=== PATIENT | female | born 1995 | race African-American/Black ===

== ENCOUNTER 2017-08-26 15:02 | Inpatient (IN) ==
[2017-08-26] MEDS ORDERED: ONDANSETRON 4 MG/2 ML VIAL IV PRN (15:39)
[2017-08-26] MEDS ORDERED: MEPERIDINE 50 MG/1 ML VIAL IV PRN (15:39)
[2017-08-26] MEDS ORDERED: BUTORPHANOL 2 MG/ML VIAL IV PRN (15:39)
[2017-08-26] MEDS ORDERED: DINOPROSTONE VAG GEL 10 MG SYRINGE VAG ONE ×2 (15:40→15:41)
[2017-08-26] MEDS ORDERED: LACTATED RINGERS 1,000 ML IV SCH (16:00)
[2017-08-26 16:28] LABS: Basophils % 0.3 % (0.0-0.8); Eosinophils # 0.1 10*3/uL (0.0-0.87); Eosinophils % 0.8 % (0.00-10.9); Hematocrit 30.7 VOL% (35.7-47.0); Immature Granulocytes % 0.8 %; Immature Granulocytes Absolute 0.06 #; Lymphocytes # 1.3 10*3/uL (1.4-4.0); Lymphocytes % 18.3 % (21.3-54.2); Mean Corpuscular HGB Conc 32.6 GM/DL (32-36); Mean Corpuscular Hemoglobin 27 PG (27-34); Mean Corpuscular Volume 81.2 FL (87-102); Mean Platelet Volume 9.3 FL (9.6-12.0); Monocytes # 0.7 10*3/uL (0.11-0.8); Monocytes % 9.4 % (1.7-12.7); Neutrophils # 5.1 10*3/uL (1.4-7.4); Neutrophils % 70.4 % (38.7-73.9); Platelet Count 272 T/CUMM (130-400); Red Blood Count 3.78 MC/CUMM (3.8-5.5); Red Cell Distribution Width 14.6 % (9.3-17.3); White Blood Count 7.3 T/CUMM (4-12)
[2017-08-26 16:46] LABS: Alanine Aminotransferase 19 U/L (13-56); Albumin 2.5 G/DL (3.4-5.0); Alkaline Phosphatase 148 U/L (45-117); Aspartate Amino Transferase 24 U/L (0-37); Bilirubin,Total < 0.39 MG/DL (0.2-1.0); Blood Urea Nitrogen 7 MG/DL (7-18); Calcium 8.5 MG/DL (8.5-10.1); Glucose 106 MG/DL (74-106); Potassium 3.8 MMOL/L (3.5-5.1); Sodium 136 MMOL/L (136-145); Total Protein 7.3 G/DL (6.4-8.3)
[2017-08-27] MEDS ORDERED: OXYTOCIN/LR 20 UNIT/1,000 ML BAG IV SCH (02:00)
[2017-08-27] MEDS ORDERED: DINOPROSTONE VAG GEL 10 MG SYRINGE VAG ONE (08:47)
[2017-08-27] MEDS ORDERED: CITRIC ACID/SODIUM CITRATE 30 ML UDCUP PO ONE (17:13)
[2017-08-27] MEDS ORDERED: LACTATED RINGERS 1,000 ML IV ONE ×2 (17:13→19:06)
[2017-08-27] MEDS ORDERED: OXYTOCIN/LR 30 UNIT/1,000 ML BAG IV ONE (17:17)
[2017-08-27] MEDS ORDERED: OXYTOCIN 10 UNIT/ML VIAL IM ONE (17:17)
[2017-08-27] MEDS ORDERED: ceFAZolin 2,000 MG in PREMIX 1 EACH IV ONE (17:18)
[2017-08-27] MEDS ORDERED: FAMOTIDINE 20 MG/2 ML VIAL IV ONE (17:30)
[2017-08-27 18:48] LABS: Cord Arterial Blood HCO3 25.4 MMOL/L
[2017-08-27] MEDS ORDERED: MORPHINE 10 MG/10 ML VIAL ONE (19:05)
[2017-08-27] MEDS ORDERED: fentaNYL 100 MCG/2 ML VIAL ONE (19:06)
[2017-08-27] MEDS ORDERED: ePHEDrine 50 MG/ML AMP ONE (19:06)
[2017-08-27] MEDS ORDERED: ACETAMINOPHEN 1,000 MG/100 ML VIAL IV ONE (19:06)
[2017-08-27] MEDS ORDERED: ONDANSETRON 4 MG/2 ML VIAL ONE (19:06)
[2017-08-27] MEDS ORDERED: IBUPROFEN 800 MG TABLET PO PRN (22:12)
[2017-08-27] MEDS ORDERED: ACETAMINOPHEN 325 MG TABLET PO PRN (22:12)
[2017-08-27] MEDS ORDERED: ONDANSETRON 4 MG/2 ML VIAL IV PRN (22:12)
[2017-08-27] MEDS ORDERED: SIMETHICONE CHEW 80 MG TABLET PO PRN (22:12)
[2017-08-27] MEDS ORDERED: OXYTOCIN/LR 20 UNIT/1,000 ML BAG IV ONE (22:12)
[2017-08-27] MEDS ORDERED: RHO(D) IMMUNE GLOBULIN 300 MCG SYRINGE IM ONE (22:12)
[2017-08-27] MEDS ORDERED: diphenhydrAMINE 50 MG/1 ML VIAL IM PRN (22:14)
[2017-08-27] MEDS: diphenhydrAMINE 50 MG/1 ML VIAL IV PRN (22:44)
[2017-08-28] MEDS: ceFAZolin 1,000 MG in SYRINGE 1 EACH IV SCH ×2 (02:56→11:13)
[2017-08-28] MEDS: DOCUSATE SODIUM 100 MG CAPSULE PO SCH ×3 (02:56→20:52)
[2017-08-28 03:14] LABS: Basophils % 0.1 % (0.0-0.8); Eosinophils % 0.2 % (0.00-10.9); Hematocrit 29.3 VOL% (35.7-47.0); Hemoglobin 9.6 GM/DL (12.0-16.0); Immature Granulocytes % 0.7 %; Immature Granulocytes Absolute 0.06 #; Lymphocytes # 1.4 10*3/uL (1.4-4.0); Lymphocytes % 16.1 % (21.3-54.2); Mean Corpuscular HGB Conc 32.8 GM/DL (32-36); Mean Corpuscular Hemoglobin 26 PG (27-34); Mean Corpuscular Volume 79.4 FL (87-102); Mean Platelet Volume 8.9 FL (9.6-12.0); Monocytes # 0.7 10*3/uL (0.11-0.8); Monocytes % 7.5 % (1.7-12.7); Neutrophils # 6.7 10*3/uL (1.4-7.4); Neutrophils % 75.4 % (38.7-73.9); Platelet Count 224 T/CUMM (130-400); Red Blood Count 3.69 MC/CUMM (3.8-5.5); Red Cell Distribution Width 14.5 % (9.3-17.3); White Blood Count 8.8 T/CUMM (4-12)
[2017-08-28] MEDS: diphenhydrAMINE 50 MG/1 ML VIAL IV PRN (04:13)
[2017-08-28] MEDS: LACTATED RINGERS 1,000 ML IV SCH ×2 (04:15→04:17)
[2017-08-28] MEDS: MULTIVITAMIN (PRENATAL) TABLET PO SCH (09:03)
[2017-08-28] MEDS: FERROUS SULFATE 325 MG TABLET PO SCH ×2 (09:03→20:52)
[2017-08-28] MEDS: MAGNESIUM HYDROXIDE SUSP 30 ML UDCUP PO PRN (09:03)
[2017-08-28 09:41] LABS: Eosinophils % 0.2 % (0.00-10.9); Hematocrit 30.1 VOL% (35.7-47.0); Hemoglobin 9.8 GM/DL (12.0-16.0); Immature Granulocytes % 0.5 %; Immature Granulocytes Absolute 0.05 #; Lymphocytes # 0.9 10*3/uL (1.4-4.0); Lymphocytes % 9.5 % (21.3-54.2); Mean Corpuscular HGB Conc 32.6 GM/DL (32-36); Mean Corpuscular Hemoglobin 26 PG (27-34); Mean Corpuscular Volume 80.1 FL (87-102); Monocytes # 0.7 10*3/uL (0.11-0.8); Monocytes % 7.5 % (1.7-12.7); Neutrophils # 8.2 10*3/uL (1.4-7.4); Neutrophils % 82.3 % (38.7-73.9); Platelet Count 201 T/CUMM (130-400); Red Blood Count 3.76 MC/CUMM (3.8-5.5); Red Cell Distribution Width 14.6 % (9.3-17.3); White Blood Count 9.9 T/CUMM (4-12)
[2017-08-28] MEDS ORDERED: INFLUENZA VIRUS VACCINE 0.5 ML SYRINGE IM ONE (10:00)
[2017-08-28] MEDS ORDERED: diphenhydrAMINE CAP 50 MG CAPSULE ONE (10:38)
[2017-08-28] MEDS: diphenhydrAMINE CAP 50 MG CAPSULE PO PRN ×2 (10:41→19:20)
[2017-08-29] MEDS: MAGNESIUM HYDROXIDE SUSP 30 ML UDCUP PO PRN (08:30)
[2017-08-29] MEDS: MULTIVITAMIN (PRENATAL) TABLET PO SCH (08:30)
[2017-08-29] MEDS: FERROUS SULFATE 325 MG TABLET PO SCH (08:30)
[2017-08-29] MEDS ORDERED: DIPH/TET/ACEL PERT BOOSTER VACCINE 0.5 ML VIAL IM ONE (09:10)
[2017-08-29] MEDS ORDERED: INFLUENZA VIRUS VACCINE 0.5 ML SYRINGE IM ONE (09:10)
[2017-08-29] MEDS: DOCUSATE SODIUM 100 MG CAPSULE PO SCH (10:07)
[2017-08-29 11:36] VITALS: BP 103/55
== END 2017-08-29 14:40 | disposition home or self-care (01) | DRG 540 ==
LOC: N.LDOUT 15:02 → N.LD 15:09 → N.OB 08-27 22:10
PROVIDERS: ADMIT Obstetrics & Gynecology; ATTEND Obstetrics & Gynecology
PROC: LDCSECT (ICD-10-PCS; 2017-08-27 18:00)

== ENCOUNTER 2022-08-23 05:54 | Inpatient (IN) ==
[2022-08-23] MEDS ORDERED: CARBOPROST TROMETHAMINE 250 MCG/ML AMP IM PRN (06:03)
[2022-08-23] MEDS ORDERED: OXYTOCIN/LR 20 UNIT/1,000 ML BAG IV ONE ×2 (06:03→10:26)
[2022-08-23] MEDS ORDERED: TRANEXAMIC ACID 1,000 MG in SODIUM CHLORIDE 0.9% 100 ML IV PRN (06:03)
[2022-08-23] MEDS ORDERED: METHYLERGONOVINE 0.2 MG/1 ML AMP IM PRN (06:03)
[2022-08-23] MEDS ORDERED: miSOPROStoL 200 MCG TABLET RECTAL PRN (06:03)
[2022-08-23] MEDS ORDERED: LACTATED RINGERS 1,000 ML IV SCH ×2 (06:30→10:30)
[2022-08-23 06:39] LABS: Basophils % 0.4 % (0.0-0.8); Eosinophils # 0.1 10*3/uL (0.0-0.87); Eosinophils % 1.1 % (0.00-10.9); Hematocrit 34.6 VOL% (35.7-47.0); Hemoglobin 11.1 GM/DL (12.0-16.0); Immature Granulocytes % 0.7 %; Immature Granulocytes Absolute 0.04 #; Lymphocytes # 1.1 10*3/uL (1.4-4.0); Lymphocytes % 19.7 % (21.3-54.2); Mean Corpuscular HGB Conc 32.1 GM/DL (32-36); Mean Corpuscular Volume 80.7 FL (87-102); Mean Platelet Volume 8.9 FL (9.6-12.0); Monocytes # 0.4 10*3/uL (0.11-0.8); Monocytes % 8.1 % (1.7-12.7); Platelet Count 232 T/CUMM (130-400); Red Blood Count 4.29 MC/CUMM (3.8-5.5); Red Cell Distribution Width 14.7 % (9.3-17.3); White Blood Count 5.4 T/CUMM (4-12)
[2022-08-23] MEDS ORDERED: CITRIC ACID/SODIUM CITRATE 30 ML UDCUP PO ONE (06:45)
[2022-08-23] MEDS ORDERED: FAMOTIDINE 20 MG/2 ML VIAL IV ONE (06:45)
[2022-08-23] MEDS ORDERED: OXYTOCIN/LR 30 UNIT/1,000 ML BAG IV ONE (07:00)
[2022-08-23] MEDS ORDERED: OXYTOCIN 10 UNIT/ML VIAL IM ONE (07:00)
[2022-08-23 07:02] LABS: Alanine Aminotransferase 16 U/L (13-56); Albumin 2.6 G/DL (3.4-5.0); Alkaline Phosphatase 164 U/L (45-117); Aspartate Amino Transferase 14 U/L (0-37); Bilirubin,Total < 0.39 MG/DL (0.20-1.00); Blood Urea Nitrogen 10 MG/DL (7-18); Calcium 8.9 MG/DL (8.5-10.1); Carbon Dioxide 20 MMOL/L (21-32); Chloride 109 MMOL/L (98-107); Glucose 86 MG/DL (74-106); Osmolality,Calculated 274.5 MOS/KG (273-304); Potassium 3.8 MMOL/L (3.5-5.1); Sodium 139 MMOL/L (136-145); Total Protein 7.2 G/DL (6.4-8.2)
[2022-08-23] MEDS ORDERED: ceFAZolin 3,000 MG in SYRINGE 1 EACH IV ONE (08:00)
[2022-08-23] MEDS ORDERED: ONDANSETRON 4 MG/2 ML VIAL ONE (08:49)
[2022-08-23] MEDS ORDERED: BUPIVACAINE SPINAL 0.75% 2 ML AMP SPINAL ONE (08:49)
[2022-08-23] MEDS ORDERED: buprenorphine HCL 0.3 MG/ML VIAL ONE (08:49)
[2022-08-23] MEDS ORDERED: GLYCOPYRROLATE 0.4 MG/2 ML VIAL ONE (09:25)
[2022-08-23] MEDS ORDERED: PHENYLEPHRINE 1 MG/10 ML SYRINGE IV ONE ×2 (09:25→09:57)
[2022-08-23] MEDS ORDERED: KETOROLAC 30 MG/1 ML VIAL ONE (09:25)
[2022-08-23 09:48] LABS: Cord Arterial Blood HCO3 21.9 MMOL/L
[2022-08-23 09:51] LABS: Cord Venous Blood HCO3 22.6 MMOL/L; Cord Venous Blood PCO2 45.8 MMHG; Cord Venous Blood PO2 34.4
[2022-08-23] MEDS ORDERED: diphenhydrAMINE 50 MG/1 ML VIAL ONE (09:57)
[2022-08-23] MEDS ORDERED: ONDANSETRON 4 MG/2 ML VIAL IV PRN ×2 (10:15→10:26)
[2022-08-23] MEDS ORDERED: diphenhydrAMINE 50 MG/1 ML VIAL IV PRN (10:15)
[2022-08-23] MEDS ORDERED: hydrOXYzine HCL 25 MG/1 ML VIAL IM PRN (10:15)
[2022-08-23] MEDS ORDERED: HYDROmorphone 1 MG/1 ML SYRINGE IV PRN (10:15)
[2022-08-23] MEDS ORDERED: SIMETHICONE CHEW 80 MG TABLET PO PRN (10:26)
[2022-08-23] MEDS ORDERED: MAGNESIUM HYDROXIDE SUSP 30 ML UDCUP PO PRN (10:26)
[2022-08-23] MEDS ORDERED: ACETAMINOPHEN 325 MG TABLET PO PRN (10:26)
[2022-08-23] MEDS ORDERED: RHO(D) IMMUNE GLOBULIN 300 MCG SYRINGE IM ONE (10:26)
[2022-08-23 10:28] LABS: Bilirubin,Urine Negative (Negative); Blood, Urine Small mg/dL (Negative); Glucose,Urine (UA) Negative (Negative); Ketones,Urine Negative (Negative); Mucus,Urine Occasional /LPF (Occasional); Nitrite,Urine Negative (Negative); Protein,Urine Negative (Negative); RBC,Urine 28 /HPF (0-4); Squamous Epithelial Cell,Urine Occasional /HPF (0-10); Urine Appearance Clear (Clear); Urine Color Yellow (Yellow); Urine Specific Gravity > 1.030 (1.001-1.035); Urine Urobilinogen 0.2 eU/dL (<2.0); Urine pH 7.5 (4.5-8.0)
[2022-08-23] MEDS ORDERED: ACETAMINOPHEN 500 MG TABLET PO SCH (13:00)
[2022-08-23] MEDS ORDERED: KETOROLAC 30 MG/1 ML VIAL IV SCH (16:00)
[2022-08-23 21:18] LABS: Basophils % 0.3 % (0.0-0.8); Eosinophils % 0.3 % (0.00-10.9); Hematocrit 33.5 VOL% (35.7-47.0); Hemoglobin 10.6 GM/DL (12.0-16.0); Immature Granulocytes % 0.6 %; Immature Granulocytes Absolute 0.04 #; Lymphocytes % 14.4 % (21.3-54.2); Mean Corpuscular HGB Conc 31.6 GM/DL (32-36); Mean Corpuscular Volume 82.7 FL (87-102); Mean Platelet Volume 8.8 FL (9.6-12.0); Monocytes # 0.7 10*3/uL (0.11-0.8); Monocytes % 10.2 % (1.7-12.7); Neutrophils % 74.2 % (38.7-73.9); Platelet Count 204 T/CUMM (130-400); Red Blood Count 4.05 MC/CUMM (3.8-5.5); Red Cell Distribution Width 14.8 % (9.3-17.3); White Blood Count 6.9 T/CUMM (4-12)
[2022-08-23] MEDS: DOCUSATE SODIUM 100 MG CAPSULE PO SCH (21:35)
[2022-08-23] MEDS: ceFAZolin 2,000 MG/50 ML DUPLEX IV SCH (21:35)
[2022-08-24] MEDS: IBUPROFEN 800 MG TABLET PO PRN ×3 (04:11→19:59)
[2022-08-24] MEDS: ceFAZolin 2,000 MG/50 ML DUPLEX IV SCH (05:17)
[2022-08-24 06:09] LABS: Basophils % 0.4 % (0.0-0.8); Eosinophils # 0.1 10*3/uL (0.0-0.87); Eosinophils % 1.1 % (0.00-10.9); Hemoglobin 9.4 GM/DL (12.0-16.0); Immature Granulocytes % 0.9 %; Immature Granulocytes Absolute 0.04 #; Lymphocytes # 0.6 10*3/uL (1.4-4.0); Lymphocytes % 12.6 % (21.3-54.2); Mean Corpuscular HGB Conc 31.3 GM/DL (32-36); Mean Corpuscular Volume 83.3 FL (87-102); Mean Platelet Volume 9.2 FL (9.6-12.0); Monocytes # 0.7 10*3/uL (0.11-0.8); Monocytes % 15.8 % (1.7-12.7); Neutrophils % 69.2 % (38.7-73.9); Platelet Count 184 T/CUMM (130-400); Red Cell Distribution Width 14.7 % (9.3-17.3); White Blood Count 4.7 T/CUMM (4-12)
[2022-08-24 07:25] LABS: Eosinophils 1 % (0-10); Hypochromia Slight; Lymphocytes 13 % (20-55); Microcytosis Slight; Platelet Estimate Adequate; Total Cells Counted 100
[2022-08-24] MEDS: METOCLOPRAMIDE 10 MG TABLET PO SCH ×2 (08:59→16:41)
[2022-08-24] MEDS: MULTIVITAMIN (PRENATAL) TABLET PO SCH (08:59)
[2022-08-24] MEDS: DOCUSATE SODIUM 100 MG CAPSULE PO SCH ×2 (08:59→20:00)
[2022-08-25] MEDS: METOCLOPRAMIDE 10 MG TABLET PO SCH (08:42)
[2022-08-25] MEDS: DOCUSATE SODIUM 100 MG CAPSULE PO SCH (09:38)
[2022-08-25] MEDS: MULTIVITAMIN (PRENATAL) TABLET PO SCH (09:38)
[2022-08-25 15:27] VITALS: BP 111/68
== END 2022-08-25 10:40 | disposition home or self-care (01) | DRG 788 ==
LOC: N.LD 05:54 → N.OB 20:08
PROVIDERS: ADMIT Obstetrics & Gynecology; ATTEND Obstetrics & Gynecology
PROC: LDCSECT (ICD-10-PCS; 2022-08-23 06:00)